=== PATIENT | male | born 1965 | race Caucasian/White ===

== ENCOUNTER 2017-04-01 18:53 | Inpatient (IN) | payer OTHER ==
[~2017-04-01] VITALS: Ht 177.8 cm; Wt 77.1 kg
[2017-04-01 19:42] LABS: Basophils # (auto) 0.1 uL; Basophils % (auto) 0.5 % (0.0-2.0); Eosinophils # (auto) 0.1 uL; Eosinophils % (auto) 0.5 % (0.0-7.0); Hematocrit 42.2 % (41.0-53.0); Hemoglobin 14.5 g/dL (13.5-17.5); Lymphocytes # (auto) 3.3 uL; Lymphocytes % (auto) 23.7 % (10.0-50.0); Mean Corpuscular Hemoglobin 33.7 pg (28.0-32.0); Mean Corpuscular Hgb Conc. 34.5 g/dL (32.0-36.0); Mean Corpuscular Volume 97.7 fL (80.0-100.0); Neutrophils # (auto) 9.5 uL; Neutrophils % (auto) 68.3 % (37.0-80.0); Nucleated Red Blood Cells % 0.1 %; Platelet Count (auto) 158 10^3/uL (140-450); Red Cell Distribution Width 12.8 % (11.8-14.3)
[2017-04-01 20:00] LABS: Albumin 4.1 g/dL (3.4-5.0); BUN/Creatinine Ratio 19.6; Calcium 9.7 mg/dL (8.5-10.1); Magnesium 1.7 mg/dL (1.6-2.6); Potassium 4.3 mmol/L (3.5-5.1)
[2017-04-01 20:05] LABS: Bilirubin, Total 0.8 mg/dL (0.2-1.0); Total Protein 8.1 g/dL (6.4-8.2)
[2017-04-01] MEDS ORDERED: LORazepam 2MG/ML-1ML VIAL IV ONE (21:15)
[2017-04-01] MEDS ORDERED: SODIUM CHLORIDE 0.9% 1,000 ML IVB ONE (21:15)
[2017-04-01] MEDS ORDERED: NITROGLYCERIN 0.2MG/HR TOPICAL PATCH TD ONE (21:15)
[2017-04-01] MEDS ORDERED: ASPirin 81 mg TAB PO ONE (21:15)
[2017-04-01 22:10] LABS: Temperature: 21.5 C (20.0-25.0)
[2017-04-01] MEDS ORDERED: SODIUM CHLORIDE 0.9% 1,000 ML IV SCH (23:19)
[2017-04-01] MEDS ORDERED: MORPHINE SULF INJ 2 MG/ML SYRINGE 1ML IV PRN (23:30)
[2017-04-01] MEDS ORDERED: LACTULOSE 20Gm/30ML SOLN PO PRN (23:30)
[2017-04-01] MEDS ORDERED: hydrOXYzine PAMOATE 25 MG CAP PO PRN (23:30)
[2017-04-01] MEDS ORDERED: NITROGLYCERIN 0.4 MG SL TAB SL PRN (23:30)
[2017-04-02 04:20] LABS: Basophils # (auto) 0 uL; Basophils % (auto) 0.3 % (0.0-2.0); Eosinophils # (auto) 0.1 uL; Mean Platelet Volume 7.9 fL (6.9-10.8); Monocytes # (auto) 0.8 uL; Nucleated Red Blood Cells % 0.2 %
[2017-04-02 04:23] LABS: Eosinophils % (auto) 1.8 % (0.0-7.0); Hematocrit 36.3 % (41.0-53.0); Hemoglobin 12.5 g/dL (13.5-17.5); Lymphocytes # (auto) 2.8 uL; Lymphocytes % (auto) 36.5 % (10.0-50.0); Mean Corpuscular Hgb Conc. 34.5 g/dL (32.0-36.0); Mean Corpuscular Volume 98.7 fL (80.0-100.0); Monocytes % (auto) 10.5 % (0.0-12.0); Neutrophils # (auto) 3.8 uL; Neutrophils % (auto) 50.9 % (37.0-80.0); Platelet Count (auto) 124 10^3/uL (140-450); Red Cell Distribution Width 12.7 % (11.8-14.3); White Blood Cell 7.6 10^3/uL (4.4-10.8)
[2017-04-02 04:48] LABS: Albumin 3.4 g/dL (3.4-5.0); BUN/Creatinine Ratio 24.7; Bilirubin, Total 1.2 mg/dL (0.2-1.0); Calcium 8.4 mg/dL (8.5-10.1); Potassium 3.4 mmol/L (3.5-5.1); Total Protein 6.5 g/dL (6.4-8.2)
[2017-04-02 08:45] VITALS: BP 107/73
[2017-04-02] MEDS ORDERED: NITROGLYCERIN 0.2MG/HR TOPICAL PATCH TD SCH (10:00)
[2017-04-02] MEDS ORDERED: chlordiazePOXIDE HCL 5 MG CAP PO SCH (10:00)
[2017-04-02] MEDS ORDERED: ASPirin 81 mg TAB PO SCH (10:00)
[2017-04-02] MEDS ORDERED: ENOXAPARIN SOD 40 MG/0.4 ML SYRINGE SC SCH (10:00)
[2017-04-02] MEDS ORDERED: METOPROLOL TARTRATE 25 MG TAB PO SCH (10:00)
[2017-04-02] MEDS ORDERED: SPIRONOLACTONE 25 MG TAB PO SCH (10:00)
[2017-04-02] MEDS ORDERED: ENALAPRIL MALEATE 10 MG TAB PO SCH (10:00)
[2017-04-02] MEDS ORDERED: ENOXAPARIN SOD 30 MG/0.3 ML SYRINGE SC SCH (10:00)
[2017-04-02] MEDS ORDERED: PANTOPRAZOLE 40 MG/10 ML VIAL IV SCH (10:00)
[2017-04-02] MEDS ORDERED: ATORVASTATIN 20 MG TAB PO SCH (22:00)
== END 2017-04-02 11:00 | disposition left against medical advice (07) | DRG 203 ==
LOC: ER 18:53 → TELE 18:54 → TELE-EAST 04-02 09:20
PROVIDERS: ADMIT Family Medicine; ATTEND Family Medicine
DX: R07.9 Chest pain, unspecified (principal); I45.81 Long QT syndrome; I10 Essential (primary) hypertension; I48.91 Unspecified atrial fibrillation; E78.5 Hyperlipidemia, unspecified; Z91.041 Radiographic dye allergy status; Z91.013 Allergy to seafood; Z72.89 Other problems related to lifestyle
CPT/HCPCS: 36415; 71010; 71020; 80053; 80061; 83735; 83880; 84484; 85025; 93005; 94761; 96361; 96374; C9113